=== PATIENT | female | born 1990 | race African-American/Black ===

== ENCOUNTER 2016-11-17 14:22 | Emergency (ER) | payer MEDICAID ==
[~2016-11-17] VITALS: Ht 172.7 cm; Wt 100.0 kg
[2016-11-17] MEDS ORDERED: ACETAMINOPHEN 325MG TABLET PO STA (15:25)
[2016-11-17 15:44] LABS: BASOPHILS % 0.6 % (0.0-2.0); EOSINOPHILS % 0.9 % (0.0-5.0); HEMATOCRIT. 40.3 % (36.0-48.0); HEMOGLOBIN. 13.2 g/dL (12.0-16.0); LYMPHOCYTES % 33.3 % (20.0-50.0); MEAN CORPUSCULAR HEMOGLOBIN 28.7 pg (28.0-32.0); MEAN CORPUSCULAR VOLUME 87.5 fL (81.0-99.0); MEAN PLATELET VOLUME 7.4 fl (7.4-10.4); MONOCYTES % 8.6 % (2.0-8.0); NEUTROPHILS % 56.6 % (40.0-76.0); PLATELET 211 x1000/uL (130-400); RED CELL DISTRIBUTION WIDTH 14.3 % (11.6-14.6)
[2016-11-17 15:50] LABS: CHLORIDE 104 mEq/L (98-107)
[2016-11-17 15:50] LABS: CLARITY URINE CLEAR (CLEAR); COLOR URINE YELLOW (YELLOW); GLUCOSE URINE NEGATIVE (NEGATIVE); KETONES URINE NEGATIVE (NEGATIVE); LEUKOCYTE ESTERASE URINE NEGATIVE (NEGATIVE); NITRITE URINE NEGATIVE (NEGATIVE); OCCULT BLOOD URINE NEGATIVE (NEGATIVE); PH URINE 8.5 (4.5-8.0); PROTEIN URINE NEGATIVE (NEGATIVE); SPECIFIC GRAVITY URINE 1.015 (1.005-1.030)
[2016-11-17 15:55] LABS: CARBON DIOXIDE 27 mEq/L (21-32)
[2016-11-17 17:06] VITALS: BP 137/72
== END 2016-11-17 17:07 | disposition home or self-care (01) ==
LOC: ER 15:23
DX: K59.00 Constipation, unspecified (principal); R11.2 Nausea with vomiting, unspecified; F12.10 Cannabis abuse, uncomplicated; J45.909 Unspecified asthma, uncomplicated; Z72.0 Tobacco use; Z88.0 Allergy status to penicillin; Z88.1 Allergy status to other antibiotic agents
CPT/HCPCS: 36415; 74000; 80053; 81003; 81025; 83690; 85025; 99285